=== PATIENT | female | born 1990 | race Caucasian/White ===

== ENCOUNTER 2017-03-05 21:03 | Inpatient (IN) | payer OTHER ==
[~2017-03-05] VITALS: Ht 167.6 cm; Wt 77.3 kg
[2017-03-05 20:54] VITALS: BP 122/74
[2017-03-05] MEDS ORDERED: FENTANYL PF 100 MCG/2ML ONE (22:36)
[2017-03-05] MEDS: FENTANYL PF 100 MCG/2ML IVPush PRN (22:45)
[2017-03-05] MEDS: LACTATED RINGERS 1,000 ML IV SCH (22:45)
[2017-03-05] MEDS ORDERED: OXYTOCIN 30U/ 0.9% NaCL 500ML 500 ML IV PRN (22:48)
[2017-03-05] MEDS: D5%-LACTATED RINGERS 1,000 ML IV SCH (22:48)
[2017-03-05] MEDS ORDERED: OXYTOCIN 30U/ 0.9% NaCL 500ML 500 ML IV ONE (22:48)
[2017-03-05] MEDS ORDERED: SODIUM CITRATE/CITRIC ACID 30 ML UDC PO PRN (23:00)
[2017-03-05] MEDS ORDERED: FENTANYL PF 100 MCG/2ML IV PRN (23:00)
[2017-03-05] MEDS ORDERED: METOCLOPRAMIDE 5 MG/ML, 2ML IVPush PRN (23:00)
[2017-03-05] MEDS ORDERED: ONDANSETRON 2MG/ML, 2ML IVPush PRN (23:00)
[2017-03-05] MEDS ORDERED: NEWBORN KIT ONE (23:07)
[2017-03-05] MEDS ORDERED: OXYTOCIN 30U/ 0.9% NaCL 500ML 500 ML ONE (23:07)
[2017-03-05] MEDS ORDERED: FENTANYL/BUPIV./NS/PF 250 ML EPIDCONT ONE ×2 (23:26→23:30)
[2017-03-05] MEDS ORDERED: LIDOCAINE/PF 1.5%-EPI 1:200K, 30ML ONE ×2 (23:26→23:30)
[2017-03-06] MEDS ORDERED: FENTANYL/BUPIV./NS/PF 250 ML EPIDCONT SCH (00:14)
[2017-03-06] MEDS: LACTATED RINGERS 1,000 ML IV SCH ×4 (00:15→14:48)
[2017-03-06] MEDS ORDERED: LACTATED RINGERS 1,000 ML IVBOLUS PRN (00:30)
[2017-03-06] MEDS ORDERED: OXYTOCIN 30U/ 0.9% NaCL 500ML 500 ML ONE ×2 (02:06→02:35)
[2017-03-06] MEDS: IBUPROFEN 600 MG TABLET PO PRN ×3 (02:30→15:49)
[2017-03-06] MEDS ORDERED: IBUPROFEN 600 MG TABLET ONE (02:35)
[2017-03-06] MEDS ORDERED: ONDANSETRON 2MG/ML, 2ML IV PRN (03:00)
[2017-03-06] MEDS ORDERED: MISOPROSTOL 200 MCG TABLET PR PRN (03:00)
[2017-03-06] MEDS ORDERED: METHYLERGONOVINE 0.2 MG/ML IM PRN (03:00)
[2017-03-06] MEDS: OXYTOCIN 30U/ 0.9% NaCL 500ML 500 ML IV SCH ×2 (03:00→12:39)
[2017-03-06] MEDS ORDERED: HYDROcodone/APAP 5/325 TABLET PO PRN ×2 (03:00)
[2017-03-06] MEDS ORDERED: OXYTOCIN 10 UNITS/ML, 1ML IM PRN (03:00)
[2017-03-06 04:45] VITALS: BP 111/64
[2017-03-06] MEDS: FENTANYL PF 100 MCG/2ML IVPush PRN (06:44)
[2017-03-06] MEDS: D5%-LACTATED RINGERS 1,000 ML IV SCH ×2 (06:48→14:48)
[2017-03-06 09:30] VITALS: BP 119/73
[2017-03-06] MEDS: PRENATAL VIT/IRON/FA 1 EACH TABLET PO SCH (09:48)
[2017-03-06] MEDS: DOCUSATE 100 MG CAPSULE PO PRN (09:48)
[2017-03-06 12:00] VITALS: BP 114/73
[2017-03-06 15:58] VITALS: BP 117/72
[2017-03-06 19:55] VITALS: BP 107/68
[2017-03-07] VITALS: BP 109/72
[2017-03-07] MEDS ORDERED: IBUP-1222 PO (02:49)
[2017-03-07] MEDS: IBUPROFEN 600 MG TABLET PO PRN (05:07)
[2017-03-07 07:30] VITALS: BP 123/80
[2017-03-07] MEDS: PRENATAL VIT/IRON/FA 1 EACH TABLET PO SCH (09:13)
[2017-03-07] MEDS: DOCUSATE 100 MG CAPSULE PO PRN (09:13)
== END 2017-03-07 14:12 | disposition home or self-care (01) | DRG 775 ==
LOC: LDOP 21:03 → LDIP 22:53 → 2NW 03-06 04:24
PROVIDERS: ADMIT Student in an Organized Health Care Education/Training Program; ATTEND Student in an Organized Health Care Education/Training Program
PROC: 10E0XZZ Delivery of Products of Conception, External Approach (ICD-10-PCS; principal; 2017-03-06)
PROC: 0HQ9XZZ Repair Perineum Skin, External Approach (ICD-10-PCS; 2017-03-06)
PROC: 00HU33Z Insertion of Infusion Device into Spinal Canal, Percutaneous Approach (ICD-10-PCS; 2017-03-06)
PROC: 3E0R3CZ (ICD-10-PCS; 2017-03-06)
DX: O69.81X0 Labor and delivery complicated by cord around neck, without compression, not applicable or unspecified (principal); Z37.0 Single live birth; Z3A.38 38 weeks gestation of pregnancy; Z88.0 Allergy status to penicillin; O70.0 First degree perineal laceration during delivery; O71.82 Other specified trauma to perineum and vulva
CPT/HCPCS: 36415; 85025; 86850; 86900; J3010; J3490; J2590; J7120

== ENCOUNTER 2018-09-16 02:15 | Inpatient (IN) | payer OTHER ==
[~2018-09-16] VITALS: Ht 167.6 cm; Wt 81.0 kg
[~2018-09-16 02:15] MED LIST: IBUP-1222 PO
[2018-09-16] MEDS ORDERED: OXYTOCIN 30U/ 0.9% NaCL 500ML 500 ML IV ONE (02:19)
[2018-09-16] MEDS ORDERED: OXYTOCIN 30U/ 0.9% NaCL 500ML 500 ML IV PRN (02:19)
[2018-09-16] MEDS: D5%-LACTATED RINGERS 1,000 ML IV SCH ×2 (02:19→10:19)
[2018-09-16] MEDS ORDERED: NEWBORN KIT ONE (02:26)
[2018-09-16] MEDS ORDERED: FENTANYL PF 100 MCG/2ML IV PRN (02:30)
[2018-09-16] MEDS ORDERED: ONDANSETRON 2MG/ML, 2ML IVPush PRN (02:30)
[2018-09-16] MEDS ORDERED: FENTANYL PF 100 MCG/2ML IVPush PRN (02:30)
[2018-09-16] MEDS ORDERED: TERBUTALINE 1 MG/ML, 1ML IVPush PRN (02:30)
[2018-09-16] MEDS ORDERED: CALCIUM CARBONATE 500 MG TAB.CHEW PO PRN ×2 (02:30→08:30)
[2018-09-16] MEDS: LACTATED RINGERS 1,000 ML IV SCH ×4 (02:35→13:22)
[2018-09-16 02:45] LABS: BASOPHILS # (AUTO) 0.04 x10^3/uL (0-0.1); BASOPHILS % (AUTO) 0 % (0-1); EOSINOPHILS # (AUTO) 0.22 x10^3/uL (0-0.4); EOSINOPHILS % (AUTO) 2 % (1-7); LYMPHOCYTES # (AUTO) 2.42 x10^3/uL (1-3.4); LYMPHOCYTES % (AUTO) 23 % (22-44); MD NO; MEAN CORPUSCULAR HEMOGLOBIN 32.2 pg (27.0-34.8); MEAN CORPUSCULAR VOLUME 94.9 fL (80-100); MONOCYTES # (AUTO) 0.74 x10^3/uL (0.2-0.8); MONOCYTES % (AUTO) 7 % (2-9); NEUTROPHILS % (AUTO) 68 % (42-75); PLATELET COUNT 252 x10^3/uL (130-400); RED CELL DISTRIBUTION WIDTH 12.8 % (9.6-15.2)
[2018-09-16] MEDS ORDERED: OXYTOCIN 30U/ 0.9% NaCL 500ML 500 ML ONE (05:07)
[2018-09-16] MEDS ORDERED: FENTANYL/BUPIV./NS/PF 250 ML EPIDCONT SCH ×2 (05:22→07:38)
[2018-09-16] MEDS ORDERED: LACTATED RINGERS 1,000 ML IVBOLUS PRN ×2 (05:30→08:00)
[2018-09-16] MEDS ORDERED: LACTATED RINGERS 1,000 ML IV SCH (07:38)
[2018-09-16] MEDS ORDERED: MISOPROSTOL 200 MCG TABLET ONE (07:49)
[2018-09-16] MEDS ORDERED: LIDOCAINE 1%, 20ML ONE (07:49)
[2018-09-16] MEDS ORDERED: NALOXONE 0.4 MG/ML, 1ML IVPush PRN (08:00)
[2018-09-16] MEDS ORDERED: EPHEDRINE 50 MG/ML, 1ML IVPush PRN (08:00)
[2018-09-16] MEDS: OXYTOCIN 30U/ 0.9% NaCL 500ML 500 ML IV SCH ×2 (08:06→18:06)
[2018-09-16] MEDS ORDERED: DIPH,PERTUSS(ACELL),TET VAC/PF NC IM-VACC PRN (08:30)
[2018-09-16] MEDS ORDERED: ACETAMINOPHEN 325 MG TABLET PO PRN ×2 (08:30)
[2018-09-16] MEDS ORDERED: OXYcodone/APAP 5/325MG TABLET PO PRN ×2 (08:30)
[2018-09-16] MEDS ORDERED: MEASLES,MUMPS&RUBELLA VACC/PF 0.5 ML SQ PRN (08:30)
[2018-09-16] MEDS ORDERED: ONDANSETRON 2MG/ML, 2ML IV PRN (08:30)
[2018-09-16] MEDS ORDERED: RHOGAM FROM BLOOD BANK 1 NOTE EA IM/IV ONE (08:30)
[2018-09-16] MEDS ORDERED: MISOPROSTOL 200 MCG TABLET PR PRN (08:30)
[2018-09-16] MEDS ORDERED: MAGNESIUM HYDROXIDE 8%, 30ML UDC PO PRN (08:30)
[2018-09-16] MEDS: PRENATAL VIT/IRON/FA 1 EACH TABLET PO SCH (09:00)
[2018-09-16] MEDS ORDERED: IBUPROFEN 600 MG TABLET ONE (13:09)
[2018-09-16] MEDS: IBUPROFEN 600 MG TABLET PO PRN ×2 (13:11→19:21)
[2018-09-16 15:50] VITALS: BP 122/64
[2018-09-16] MEDS: DOCUSATE 100 MG CAPSULE PO PRN (19:21)
[2018-09-16 20:50] VITALS: BP 112/72
[2018-09-16 21:32] LABS: BASOPHILS # (AUTO) 0.05 x10^3/uL (0-0.1); BASOPHILS % (AUTO) 0 % (0-1); EOSINOPHILS # (AUTO) 0.24 x10^3/uL (0-0.4); EOSINOPHILS % (AUTO) 2 % (1-7); LYMPHOCYTES # (AUTO) 2.15 x10^3/uL (1-3.4); LYMPHOCYTES % (AUTO) 18 % (22-44); MD NO; MEAN CORPUSCULAR HEMOGLOBIN 32.5 pg (27.0-34.8); MEAN CORPUSCULAR HGB CONC 34.1 g/dL (32.4-35.8); MEAN CORPUSCULAR VOLUME 95.3 fL (80-100); MEAN PLATELET VOLUME 6.9 fL (7.4-10.4); MONOCYTES # (AUTO) 0.92 x10^3/uL (0.2-0.8); MONOCYTES % (AUTO) 8 % (2-9); NEUTROPHILS # (AUTO) 8.85 x10^3/uL (1.8-6.8); NEUTROPHILS % (AUTO) 73 % (42-75); PLATELET COUNT 246 x10^3/uL (130-400); RED BLOOD COUNT 4.03 x10^6/uL (3.82-5.3); RED CELL DISTRIBUTION WIDTH 12.6 % (9.6-15.2)
[2018-09-17 00:18] VITALS: BP 126/81
[2018-09-17] MEDS: IBUPROFEN 600 MG TABLET PO PRN ×4 (01:53→20:47)
[2018-09-17 04:45] VITALS: BP 111/65
[2018-09-17] MEDS: OXYTOCIN 30U/ 0.9% NaCL 500ML 500 ML IV SCH ×2 (04:45→14:06)
[2018-09-17] MEDS: PRENATAL VIT/IRON/FA 1 EACH TABLET PO SCH (08:00)
[2018-09-17] MEDS: DOCUSATE 100 MG CAPSULE PO PRN ×2 (08:00→20:47)
[2018-09-17 09:00] VITALS: BP 102/65
[2018-09-17 12:00] VITALS: BP 123/80
[2018-09-17 20:30] VITALS: BP 107/68
[2018-09-18] MEDS: OXYTOCIN 30U/ 0.9% NaCL 500ML 500 ML IV SCH (00:06)
[2018-09-18] MEDS: IBUPROFEN 600 MG TABLET PO PRN (02:44)
[2018-09-18 06:50] VITALS: BP 104/64
== END 2018-09-18 10:45 | disposition home or self-care (01) | DRG 807 ==
LOC: LDIP 02:15 → 2NW 15:31
PROVIDERS: ADMIT Obstetrics & Gynecology; ATTEND Obstetrics & Gynecology
PROC: 10E0XZZ Delivery of Products of Conception, External Approach (ICD-10-PCS; principal; 2018-09-16)
PROC: 3E0R3BZ Introduction of Anesthetic Agent into Spinal Canal, Percutaneous Approach (ICD-10-PCS; 2018-09-16)
PROC: 00HU33Z Insertion of Infusion Device into Spinal Canal, Percutaneous Approach (ICD-10-PCS; 2018-09-16)
PROC: 10907ZC Drainage of Amniotic Fluid, Therapeutic from Products of Conception, Via Natural or Artificial Opening (ICD-10-PCS; 2018-09-16)
PROC: 10H07YZ Insertion of Other Device into Products of Conception, Via Natural or Artificial Opening (ICD-10-PCS; 2018-09-16)
DX: O76 Abnormality in fetal heart rate and rhythm complicating labor and delivery (principal); Z37.0 Single live birth; Z3A.39 39 weeks gestation of pregnancy; O71.89 Other specified obstetric trauma
CPT/HCPCS: 36415; 85025; 86850; 86900; G0378; J2590; J3010; J7120

== ENCOUNTER 2020-11-05 20:39 | Inpatient (IN) | payer BC ==
[~2020-11-05] VITALS: Ht 167.6 cm; Wt 83.0 kg
[2020-11-05] MEDS ORDERED: NEWBORN KIT ONE (21:16)
[2020-11-05] MEDS ORDERED: CALCIUM CARBONATE 500 MG TAB.CHEW PO PRN (21:30)
[2020-11-05] MEDS ORDERED: LACTATED RINGERS 1,000 ML IV SCH (21:30)
[2020-11-05] MEDS ORDERED: FENTANYL PF 100 MCG/2ML IV PRN (21:30)
[2020-11-05] MEDS ORDERED: FENTANYL PF 100 MCG/2ML IVPush PRN (21:30)
[2020-11-05] MEDS ORDERED: PLEASE ENTER HEIGHT AND WEIGHT MC SCH (21:30)
[2020-11-05] MEDS ORDERED: TERBUTALINE 1 MG/ML, 1ML IVPush PRN (21:30)
[2020-11-05] MEDS ORDERED: TERBUTALINE 1 MG/ML, 1ML SQ PRN (21:30)
[2020-11-05] MEDS ORDERED: ONDANSETRON 2MG/ML, 2ML IVPush PRN ×2 (21:30→22:30)
[2020-11-05] MEDS ORDERED: OXYTOCIN 30U/ 0.9% NaCL 500ML 500 ML IV PRN (21:30)
[2020-11-05] MEDS ORDERED: D5%-LACTATED RINGERS 1,000 ML IV SCH (21:30)
[2020-11-05 21:39] LABS: BASOPHILS % (AUTO) 1 % (0-1); EOSINOPHILS % (AUTO) 2 % (1-7); LYMPHOCYTES % (AUTO) 20 % (22-44); MEAN CORPUSCULAR HEMOGLOBIN 31.4 pg (27.0-34.8); MEAN CORPUSCULAR HGB CONC 34.2 g/dL (32.4-35.8); MEAN PLATELET VOLUME 7.1 fL (7.4-10.4); MONOCYTES % (AUTO) 7 % (2-9); NEUTROPHILS % (AUTO) 71 % (42-75); PLATELET COUNT 238 x10^3/uL (130-400); RED BLOOD COUNT 4.42 x10^6/uL (3.82-5.3); RED CELL DISTRIBUTION WIDTH 13.3 % (9.6-15.2)
[2020-11-05 21:40] LABS: MD NO
[2020-11-05] MEDS ORDERED: FENTANYL/BUPIV./NS/PF 250 ML EPIDCONT ONE (22:05)
[2020-11-05] MEDS ORDERED: BUPIVACAINE 0.25% ONE (22:05)
[2020-11-05] MEDS ORDERED: LACTATED RINGERS 1,000 ML IVBOLUS PRN (22:30)
[2020-11-05] MEDS ORDERED: NALOXONE 0.4 MG/ML, 1ML IVPush PRN (22:30)
[2020-11-05] MEDS ORDERED: DIPHENHYDRAMINE 50 MG/ML, 1ML IVPush PRN (22:30)
[2020-11-05] MEDS: FENTANYL/BUPIV./NS/PF 250 ML EPIDCONT SCH (22:30)
[2020-11-05] MEDS ORDERED: EPHEDRINE 50 MG/ML, 1ML IVPush PRN (22:30)
[2020-11-05] MEDS: LACTATED RINGERS 1,000 ML IV SCH (22:53)
[2020-11-06] MEDS ORDERED: SIMETHICONE 80 MG CHEW TAB PO PRN (01:00)
[2020-11-06] MEDS ORDERED: ONDANSETRON 2MG/ML, 2ML IV PRN (01:00)
[2020-11-06] MEDS ORDERED: OXYcodone IR 5MG TABLET PO PRN (01:00)
[2020-11-06] MEDS ORDERED: MISOPROSTOL 200 MCG TABLET PR PRN (01:00)
[2020-11-06] MEDS ORDERED: ACETAMINOPHEN 325 MG TABLET PO PRN (01:00)
[2020-11-06] MEDS: OXYTOCIN 30U/ 0.9% NaCL 500ML 500 ML IV SCH ×3 (01:36→19:03)
[2020-11-06] MEDS ORDERED: PREN1TAB60 PO (01:48)
[2020-11-06] MEDS: LACTATED RINGERS 1,000 ML IV SCH ×3 (04:45→22:30)
[2020-11-06 04:51] VITALS: BP 117/82
[2020-11-06] MEDS: IBUPROFEN 800 MG TABLET PO PRN ×3 (05:27→21:49)
[2020-11-06 09:09] LABS: BASOPHILS % (AUTO) 1 % (0-1); EOSINOPHILS % (AUTO) 1 % (1-7); LYMPHOCYTES % (AUTO) 14 % (22-44); MEAN CORPUSCULAR HEMOGLOBIN 31.7 pg (27.0-34.8); MEAN CORPUSCULAR HGB CONC 33.9 g/dL (32.4-35.8); MEAN PLATELET VOLUME 7.1 fL (7.4-10.4); MONOCYTES % (AUTO) 8 % (2-9); NEUTROPHILS % (AUTO) 76 % (42-75); PLATELET COUNT 200 x10^3/uL (130-400); RED BLOOD COUNT 4.38 x10^6/uL (3.82-5.3); RED CELL DISTRIBUTION WIDTH 13.1 % (9.6-15.2)
[2020-11-06 09:18] LABS: MD NO
[2020-11-06 09:30] VITALS: BP 112/74
[2020-11-06] MEDS: DOCUSATE 100 MG CAPSULE PO PRN ×2 (09:32→21:49)
[2020-11-06] MEDS: PRENATAL VIT/IRON/FA 1 EACH TABLET PO SCH (09:32)
[2020-11-06 12:50] VITALS: BP 109/72
[2020-11-06 16:28] VITALS: BP 117/70
[2020-11-06 20:00] VITALS: BP 123/76
[2020-11-06] MEDS: FENTANYL/BUPIV./NS/PF 250 ML EPIDCONT SCH (22:30)
[2020-11-07] MEDS: LACTATED RINGERS 1,000 ML IV SCH (05:25)
[2020-11-07] MEDS: OXYTOCIN 30U/ 0.9% NaCL 500ML 500 ML IV SCH (05:25)
[2020-11-07] MEDS: IBUPROFEN 800 MG TABLET PO PRN (05:30)
[2020-11-07 07:25] VITALS: BP 122/74
[2020-11-07] MEDS: DOCUSATE 100 MG CAPSULE PO PRN (07:47)
[2020-11-07] MEDS: PRENATAL VIT/IRON/FA 1 EACH TABLET PO SCH (07:47)
[2020-11-07] MEDS ORDERED: DOCU-131 PO (09:18)
[2020-11-07] MEDS ORDERED: IBUP-1223 PO (09:18)
== END 2020-11-07 12:45 | disposition home or self-care (01) | DRG 807 ==
LOC: LDOP 20:39 → LDIP 21:14 → 2NW 11-06 03:11
PROVIDERS: ADMIT Obstetrics & Gynecology; ATTEND Obstetrics & Gynecology
PROC: 10E0XZZ Delivery of Products of Conception, External Approach (ICD-10-PCS; principal; 2020-11-06)
PROC: 10907ZC Drainage of Amniotic Fluid, Therapeutic from Products of Conception, Via Natural or Artificial Opening (ICD-10-PCS; 2020-11-06)
PROC: 3E0R3BZ Introduction of Anesthetic Agent into Spinal Canal, Percutaneous Approach (ICD-10-PCS; 2020-11-06)
PROC: 00HU33Z Insertion of Infusion Device into Spinal Canal, Percutaneous Approach (ICD-10-PCS; 2020-11-06)
DX: O80 Encounter for full-term uncomplicated delivery (principal); Z37.0 Single live birth; Z3A.40 40 weeks gestation of pregnancy; Z20.822 Contact with and (suspected) exposure to COVID-19; Z88.0 Allergy status to penicillin
CPT/HCPCS: 36415; 85025; 86592; 86850; 86900; 87635; G0378; J2590; J3010; J7120